=== PATIENT | male | born 1980 | race Caucasian/White ===

== ENCOUNTER 2017-06-04 16:34 | Emergency (ER) | payer OTHER ==
[2017-06-04 16:48] VITALS: BP 126/92; PULSE 112; RESP 18; TEMP 99.8; O2SAT 99
[2017-06-04] MEDS ORDERED: HYDROMORPHONE HCL 2 MG/ML SOL ONE (17:16)
[2017-06-04] MEDS ORDERED: ONDANSETRON HCL 4 MG/2 ML SOL ONE (17:16)
[2017-06-04] MEDS ORDERED: ONDANSETRON HCL 4 MG/2 ML SOL IV ONE (17:20)
[2017-06-04] MEDS ORDERED: HYDROMORPHONE HCL 2 MG/ML SOL IV ONE (17:20)
[2017-06-04] MEDS ORDERED: SODIUM CHLORIDE 0.9% 1000ML 1,000 ML IV SCH (17:30)
== END 2017-06-04 17:15 | disposition home or self-care (01) ==
LOC: ED 16:34
DX: J02.9 Acute pharyngitis, unspecified (principal)
CPT/HCPCS: 87430; 99282; J1170; J2405